=== PATIENT | female | born 1955 | race Caucasian/White ===

== ENCOUNTER 2021-10-19 11:28 | Emergency (ER) | payer BC, SELFPAY ==
[2021-10-19 11:29] VITALS: BP 135/70; PULSE 100; RESP 18; TEMP 36.9; O2SAT 100; BMI 27.3
--- NOTE | 2021-10-19 11:35 | PC.NURSE ---
1287 PT PROVIDED WARM BLANKET, POC DISCUSSED. AT BEDSIDE. QUESTIONS ENCOURAGED AND ANSWERED. PT V/U. CALL LIGHT WITHIN REACH
--- NOTE | 2021-10-19 11:40 | PC.NURSE ---
PT PLACED IN APPROPRIATE PRECAUTIONS
[2021-10-19 11:45] VITALS: BP 127/70; PULSE 90; RESP 18; TEMP 36.9; O2SAT 99
[2021-10-19 11:48] LABS: Influenza A, PCR Not Detected (NotDetected); Influenza B, PCR Not Detected (NotDetected)
[2021-10-19 11:58] VITALS: BP 127/70; PULSE 86; RESP 18; O2SAT 98
[2021-10-19 12:00] VITALS: BP 119/66; PULSE 88; RESP 18; O2SAT 99
--- NOTE | 2021-10-19 12:01 | [facility].EDGENADL ---
ED Disposition Clinical Impression: COVID-19 virus infection, Epigastric pain Disposition: Home, Self-Care Condition on Discharge: Good Instructions: DI for Abdominal Pain-Adult, DI for COVID-19 (Suspected or Confirmed ) Additional Instructions: Paxlovid as prescribed. If you decide to take this medication, started within 48 hours of onset of illness. Rest, drink plenty of fluids. Tylenol for fever and/or aches and pains. Monitor your symptoms. IF YOU HAVE AN EMERGENCY WARNING SIGN (INCLUDING TROUBLE BREATHING), SEEK EMERGENCY MEDICAL CARE IMMEDIATELY. COVID-19 Isolation: People with COVID-19 should isolate for 5 days. Then if they are asymptomatic (no symptoms) or their symptoms are resolving (without fever for 24 hours), follow that by 5 days of wearing a mask when around others to minimize the risk of infecting people you encounter. If you test positive for COVID-19 and never develop symptoms, day 0 is the day of your positive viral test (based on the date you were tested) and day 1 is the first full day after your positive test. If you develop symptoms after testing positive, your 5-day isolation period must start over. Day 0 is your first day of symptoms. Day 1 is the first full day after your symptoms developed. What to do: Stay in a separate room from other household members, if possible. Use a separate bathroom, if possible. Avoid contact with other members of the household and pets. Don?t share personal household items, like cups, towels, and utensils. Wear a mask when around other people if able. Prescriptions: Nirmatrelvir/Ritonavir [Paxlovid 2X150 mg-100 mg (Eua)] 1 each PO BID #1 packet Prescription Printed Referrals: Provider,Referral, MD [Primary Care Provider] - - Critical Care Critical Care Time: No Attestation: On , the high probability of a clinically significant, sudden or life threatening deterioration of the following system(s) required my full and direct attention, intervention and personal management. The time I documented below is in addition to time spent performing reported procedures but includes the following listed in this critical care notation. Medical Decision Making - [place] Inquiry Pt receiving controlled substance: No Vital Signs: 10/19/21 11:29 10/19/21 11:45 10/19/21 11:58 Temperature 98.4 F 98.4 F Temperature Source Oral Oral Pulse Rate 90 86 Pulse Rate [Radial] 100 H Respiratory Rate 18 18 18 Blood Pressure 127/70 127/70 Blood Pressure [Right Arm] 135/70 Blood Pressure Mean 86 Blood Pressure Mean [Right Arm] 91 Blood Pressure Source [Right Arm] Automatic Cuff Blood Pressure Position [Right Arm] Sitting 02 Sat by Pulse Oximetry 100 99 98 Oxygen Delivery Method Room Air 10/19/21 12:00 Temperature Temperature Source Pulse Rate 88 Pulse Rate [Radial] Respiratory Rate 18 Blood Pressure 119/66 Blood Pressure [Right Arm] Blood Pressure Mean 83 Blood Pressure Mean [Right Arm] Blood Pressure Source [Right Arm] Blood Pressure Position [Right Arm] 02 Sat by Pulse Oximetry 99 Oxygen Delivery Method - Lab Data Lab Results 10/19/21 11:35: SARS-CoV-2 (PCR) Detected A, Influenza A Untype (PCR) Not detected, Influenza Type B (PCR) Not detected 10/19/21 12:21: Urine Color Yellow, Urine Appearance Clear, Urine pH 6.5, Ur Specific [place] 1.010, Urine Protein Negative, Urine Glucose (UA) Negative, Urine Ketones Trace, Urine Blood Trace-i, Urine Nitrate Negative, Urine Bilirubin Negative, Urine Urobilinogen 0.2, Ur Leukocyte Esterase 1+ A, Urine RBC None, Urine WBC 3-5, Ur Squamous Epith Cells 3-5, Urine Bacteria Trace 10/19/21 12:26: WBC 6.4, RBC 4.91, Hgb 15.0, Hct 46.1, MCV 94.0, MCH 30.5, MCHC 32.4, RDW 13.4, Plt Count 214, MPV 7.8, Neut % (Auto) 88.8 H, Lymph % (Auto) 3.9 L, [place] % (Auto) 6.0, Eos % (Auto) 1.0, Baso % (Auto) 0.3, Neut # (Auto) 5.6, Lymph # (Auto) 0.3 L, [place] # (Auto) 0.4, Eos # (Auto) 0.1, Baso # (Auto) 0.0, Tota
--- NOTE | 2021-10-19 12:06 | PC.NURSE ---
ED MD AT BEDSIDE TO EVALUATE PT
--- NOTE | 2021-10-19 12:11 | PC.NURSE ---
DR LANTIGUA IN WITH PT
[2021-10-19 12:15] LABS: Coronavirus 19, PCR Detected (NotDetected)
--- NOTE | 2021-10-19 12:19 | PC.NURSE ---
ED MD AT BEDSIDE DISCUSSING LAB RESULTS WITH PT AND
--- NOTE | 2021-10-19 12:24 | XR_ITS ---
FINAL REPORT CLINICAL HISTORY: epigastric pain, covid+ FINDINGS: SINGLE-VIEW CHEST The heart size is normal. The mediastinum is normal. The lungs are clear. There is no pneumothorax. IMPRESSION: No acute cardiopulmonary process. Reviewed, Interpreted and Dictated by Zenon Claudio III, MD Transcribed by Janice Smith Authenticated and [facility]
--- NOTE | 2021-10-19 12:26 | PC.NURSE ---
PT ASSISTED TO BR FOR URINE SPECIMEN COLLECTION
--- NOTE | 2021-10-19 12:30 | PC.NURSE ---
1230 US SENT TO LAB
[2021-10-19 12:33] LABS: Microscopic, Urine URINE MICROSCOPIC (MICROSCOPIC)
[2021-10-19 12:34] LABS: Appearance,Urine CLEAR (Clear); Bilirubin,Urine Negative (Negative); Blood, Urine TRACE-I (Negative); Color,Urine YELLOW (Yellow); Glucose,Urine (UA) Negative (Negative); Ketones,Urine TRACE (Negative); Leukocyte Esterase,Urine 1+ (Negative); Nitrate,Urine Negative (Negative); PH,Urine 6.5 (5.0-8.5); Protein,Urine Negative (Negative); Urobilinogen,Urine 0.2 EU/dl (0.2)
--- NOTE | 2021-10-19 12:35 | PC.NURSE ---
1677 POC DISCUSSED WITH PT AND . QUESTIONS ENCOURAGED AND ANSWERED, PT AND V/U AGREE TO POC. LABS COLLECTED WITH IV START, PT TOLERATED WELL. BLOOD SENT TO LAB
--- NOTE | 2021-10-19 12:39 | PC.NURSE ---
1239 EKG COMPLETED AND REVIEWED BY ED
--- NOTE | 2021-10-19 12:39 | ECG_ITS ---
APPROVED REPORT Exam: Resting ECG HR:84 bpm ECG Measurements Heart Rate 84 AXES [place] 134 P 33 QRSd 88 QRS 14 QT 346 T 37 QTc 387 Conclusion SINUS RHYTHM MODERATE ST DEPRESSION [0.05+ mV ST DEPRESSION] ABNORMAL ECG UNCONFIRMED REPORT Electronically signed by : Fabrice Sneed MD 10/20/2021 21:03:44
[2021-10-19 12:45] LABS: Bacteria,Urine Trace /lpf
--- NOTE | 2021-10-19 12:53 | PC.NURSE ---
XR AT BEDSIDE FOR CXR
[2021-10-19 13:14] LABS: Basophils % 0.3 % (0.1-2.0); Eosinophils # 0.1 K/mm3 (0.0-0.4); Hematocrit 46.1 % (37.0-47.0); Lymphocytes # 0.3 K/mm3 (0.7-4.5); Lymphocytes % 3.9 % (10-50); Mean Corpuscular HGB Conc 32.4 g/dL (31.8-35.4); Mean Corpuscular Hemoglobin 30.5 pg (27.0-31.2); Mean Platelet Volume 7.8 fl (7.4-10.4); Monocytes # 0.4 K/mm3 (0.1-1.0); Neutrophils # 5.6 K/mm3 (1.8-7.8); Neutrophils % 88.8 % (37.0-80.0); Platelet Count 214 K/mm3 (142-424); Red Blood Count 4.91 M/mm3 (4.20-5.40); Red Cell Distribution Width 13.4 % (11.5-17.5); White Blood Count 6.4 K/mm3 (4.8-10.8)
[2021-10-19 13:18] LABS: Alanine Aminotransferase 20 U/L (12-78); Albumin Level 4.5 g/dl (3.5-5.0); Albumin/Globulin Ratio 1.3 (1.1-1.8); Alkaline Phosphatase 89 U/L (38-126); Anion Gap 9.8 mEq/L (5-15); Aspartate Amino Transferase 38 U/L (14-36); Bilirubin,Total 0.6 mg/dl (0.2-1.3); Blood Urea Nitrogen 10 mg/dl (7-17); Calcium 9.6 mg/dl (8.4-10.2); Carbon Dioxide 29 mmol/L (22.0-30.0); Chloride 101 mmol/L (98-107); Creatinine Clearance Estimated 73 mL/min (50-200); Estimated Glomerular Filt Rate 63 ml/min (>60); GFR (African American) 76 ML/MIN (>60); Globulin 3.4 g/dL (1.3-3.2); Glucose 123 mg/dl (74-100); Lipase 41 U/L (23-300); Potassium 3.8 mmoL/L (3.5-5.1); Sodium 136 mmol/L (136-145); Total Protein,Serum 7.9 g/dl (6.3-8.2)
[2021-10-19 13:21] LABS: MANUAL DIFFERENTIAL MANUAL DIFFERENTIAL (MANUAL DIFF)
[2021-10-19 13:27] LABS: Lymphocytes % 3 % (10-50); Monocytes % 5 % (2-9); Neutrophils % 92 % (42-76); Platelet Estimate Normal; RBC Morphology Normal; Total Cells Counted 100
[2021-10-19 13:30] LABS: Troponin I < 0.01 ng/ml (0.00-0.034)
--- NOTE | 2021-10-19 13:41 | PC.NURSE ---
ED MD AT BEDSIDE TO REEVALUATE PT
[2021-10-19 14:14] VITALS: BP 147/72; PULSE 85; O2SAT 97
[2021-10-19 14:24] VITALS: BP 147/72; PULSE 85; RESP 18; TEMP 36.9; O2SAT 97
== END 2021-10-19 14:25 | disposition home or self-care (01) ==
PROVIDERS: Emergency Provider Emergency Medicine
DX: U07.1 COVID-19 (principal); R10.13 Epigastric pain; Z88.0 Allergy status to penicillin
CPT/HCPCS: 71045; 80053; 81001; 83690; 84484; 85007; 85025; 87086; 93005; 99283; C9803; U0003; U0005